=== PATIENT | male | born 1940 | race Caucasian/White ===

== ENCOUNTER 2019-04-14 00:11 | Emergency (ER) | payer OTHER ==
[~2019-04-14] VITALS: Ht 180.3 cm; Wt 94.5 kg
[2019-04-14 03:09] VITALS: BP 168/73
== END 2019-04-14 03:19 | disposition home or self-care (01) | DRG 125 ==
LOC: EDBD 00:11 → ED 00:11
DX: S01.111A Laceration without foreign body of right eyelid and periocular area, initial encounter (principal); W18.2XXA Fall in (into) shower or empty bathtub, initial encounter; Y93.E1 Activity, personal bathing and showering; Y92.142 Bathroom in prison as the place of occurrence of the external cause

== ENCOUNTER 2019-07-28 19:38 | Emergency (ER) | payer OTHER ==
[~2019-07-28] VITALS: Ht 182.9 cm; Wt 84.1 kg
[2019-07-28] MEDS ORDERED: TORADOL PO (21:27)
[2019-07-28 21:50] VITALS: BP 186/81
== END 2019-07-28 21:50 | disposition designated cancer center or children's hospital (05) | DRG 156 ==
LOC: ED 19:38
DX: S02.2XXA Fracture of nasal bones, initial encounter for closed fracture (principal); S00.01XA Abrasion of scalp, initial encounter; S00.83XA Contusion of other part of head, initial encounter; Y00.XXXA Assault by blunt object, initial encounter; Y93.89 Activity, other specified; Y92.141 Dining room in prison as the place of occurrence of the external cause